=== PATIENT | female | born 1950 | race Caucasian/White ===

== ENCOUNTER → 2022-11-05 | Day surgery (SDC) | payer MEDICARE ==
[2022-11-05] MEDS: Brimonidine 0.2% Ophth Soln 5 ML Bottle EYELF SCH ×2 (11:49→13:25)
[2022-11-05] MEDS: Phenylephrine 2.5% Ophth Soln 2 ML Bot EYELF SCH ×3 (11:53→12:17)
[2022-11-05] MEDS: Tropicamide 1% Ophth Soln 15 ML Bottle EYELF SCH ×3 (11:58→12:29)
== END ==
LOC: JD.SDS 12:39
PROVIDERS: ATTEND Ophthalmology
DX: H26.492 Other secondary cataract, left eye (principal); F17.210 Nicotine dependence, cigarettes, uncomplicated; Z90.49 Acquired absence of other specified parts of digestive tract; Z98.890 Other specified postprocedural states; Z96.1 Presence of intraocular lens
CPT/HCPCS: A9270-GY; J3490